=== PATIENT | female | born 1955 | race Caucasian/White ===

== ENCOUNTER 2024-01-01 08:22 | Outpatient (OUT) | payer MEDICARE, SELFPAY ==
--- NOTE | 2024-01-01 08:24 | MM_ITS ---
Patient Name: CLAUDIA ELIAS MR#: [id number] : 1955 Exam Date: 01/01/2024 Ordering Doctor: DR PAULINA FOSS M.D. RADIOLOGY REPORT PROCEDURE: MM TOMOSYNTHESIS SCREENING BI COMPARISON: MG MAMM SCREEN IGNACIO W CAD, 07/23/2020. MG MAMM SCREEN 3D IGNACIO CAD, 07/26/2021. INDICATIONS: Screening Calculator Name NCI Breast Cancer Risk Assessment Tool 5 Year Breast Cancer Risk 1.50% Lifetime Breast Cancer Risk 4.50% Personal Breast Cancer No Personal Ovarian Cancer No Treatments None Family Cancers None LOCATION: [facility] BREAST COMPOSITION: Scattered areas fibroglandular density. FINDINGS: DIAGNOSTIC CATEGORY 2--BENIGN FINDING. NO CHANGE FROM COMPARISON. Scattered benign-appearing nodules are present. Scattered benign-appearing calcifications are present. Scattered benign-appearing lymph nodes are present. RIGHT BREAST: No significant suspicious finding. LEFT BREAST: No significant suspicious finding. RECOMMENDATIONS: ROUTINE MAMMOGRAM AND CLINICAL EVALUATION IN 12 MONTHS. PLEASE NOTE: A NORMAL MAMMOGRAM DOES NOT EXCLUDE THE POSSIBILITY OF BREAST CANCER. A CLINICALLY SUSPICIOUS PALPABLE LUMP SHOULD BE BIOPSIED. Dictated by: Ramsey Grady MD on 01/01/2024 at 11:02 Approved by: Ramsey Grady MD on 01/01/2024 at 11:04
--- NOTE | 2024-01-01 08:51 | XR_ITS ---
[address] [address] Patient Name: CLAUDIA ELIAS MRN: [id number] date: 1955 Sex: F Assigned Patient Location: [facility] Current Patient Location: [facility] Accession/Order Number: [id number] Exam Date: 01/01/2024 08:40 Report Date: 01/01/2024 09:26 At the request of: PAULINA FOSS Procedure: XR DEXA axial skeleton EXAMINATION: XR DEXA axial skeleton, 01/01/2024 8:40 AM EDT HISTORY: Estrogen Deficiency E28.39 COMPARISON: 2018 TECHNIQUE: Dual-energy X-ray absorptiometry (DEXA) bone density study performed for the axial skeleton. HISTORY: Estrogen Deficiency E28.39 FINDINGS: Bone mineral density AP spine L2-L4 measures 1.41 g/sq cm. T score 1.8. WHO classification: Normal. The lowest bone mineral density left femoral neck measuring 0.923 g/sq cm. T score -0.8. WHO classification: Normal XR/XR DEXA axial skeleton IMPRESSION: Normal bone mineral density. Low fracture risk Electronically authenticated by: JOSE MARTIN MATTHEWS Date: 01/01/2024 09:26
== END 2024-01-01 08:23 | disposition home or self-care (01) ==
LOC: MAMMO 08:22
PROVIDERS: PCP Internal Medicine; Visit Provider Internal Medicine
DX: Z12.31 Encounter for screening mammogram for malignant neoplasm of breast (principal); E28.39 Other primary ovarian failure
CPT/HCPCS: 77063; 77067; 77080

== ENCOUNTER 2025-06-16 08:16 | Outpatient (OUT) | payer MEDICARE, SELFPAY ==
--- NOTE | 2025-06-16 08:21 | MM_ITS ---
Patient Name: CLAUDIA ELIAS MR#: [id number] : 1955 Exam Date: 06/16/2025 Ordering Doctor: DR PAULINA FOSS M.D. RADIOLOGY REPORT PROCEDURE: MM TOMOSYNTHESIS SCREENING BI COMPARISON: MM TOMOSYNTHESIS SCREENING BI, 01/01/2024. MG MAMM SCREEN 3D IGNACIO CAD, 07/26/2021. MG MAMM SCREEN IGNACIO W CAD, 07/23/2020. MG MAMM SCREEN IGNACIO W CAD, 01/31/2017. INDICATIONS: Screening Calculator Name NCI Breast Cancer Risk Assessment Tool 5 Year Breast Cancer Risk 1.60% Lifetime Breast Cancer Risk 4.10% Personal Breast Cancer No Personal Ovarian Cancer No Treatments None Family Cancers None LOCATION: [facility] BREAST COMPOSITION: There are scattered areas of fibroglandular density. FINDINGS: RIGHT BREAST: No significant suspicious finding. LEFT BREAST: No significant suspicious finding. DIAGNOSTIC CATEGORY 1--NEGATIVE. RECOMMENDATIONS: ROUTINE MAMMOGRAM AND CLINICAL EVALUATION IN 12 MONTHS. Dictated by: Tyrel Kim DO on 06/16/2025 at 15:45 Approved by: Tyrel Kim DO on 06/16/2025 at 15:48
== END 2025-06-16 08:17 | disposition home or self-care (01) ==
LOC: MAMMO 08:16
PROVIDERS: PCP Internal Medicine; Visit Provider Internal Medicine
DX: Z12.31 Encounter for screening mammogram for malignant neoplasm of breast (principal)
CPT/HCPCS: 77063; 77067